=== PATIENT | male | born 1940 ===

== ENCOUNTER 2023-02-05 11:17 | Inpatient (IN) | payer OTHER ==
[~2023-02-05] VITALS: Ht 165.1 cm; Wt 64.0 kg
[2023-02-12] MEDS ORDERED: PERCOCET 5-3251 EACH PO (07:56)
[2023-02-12] MEDS ORDERED: ELIQUIS2.5 MG PO (07:56)
[2023-02-12] MEDS ORDERED: DUI500 PO (07:56)
[2023-02-12] MEDS ORDERED: AMLODIPINE BESYL5 MG PO (14:42)
== END 2023-02-13 16:00 | DRG 470 ==
LOC: O/R 02-11 05:35 → SURG 02-11 05:35
PROVIDERS: ADMIT Orthopaedic Surgery; ATTEND Orthopaedic Surgery
PROC: 0MNP0ZZ Release Left Knee Bursa and Ligament, Open Approach (ICD-10-PCS; 2023-02-11)
PROC: 0SRD0J9 Replacement of Left Knee Joint with Synthetic Substitute, Cemented, Open Approach (ICD-10-PCS; principal; 2023-02-11 07:00)
DX: M17.12 Unilateral primary osteoarthritis, left knee (principal); I10 Essential (primary) hypertension